=== PATIENT | female | born 1970 | race Caucasian/White ===

== ENCOUNTER 2019-10-16 11:50 | Outpatient (CLI) | payer BC ==
--- NOTE | 2019-10-16 12:21 | RAD ---
2 VIEW CHEST: Date: 10/16/2019 HISTORY: Cough. FINDINGS: Lung briggs appear clear. No infiltrate identified. Heart and mediastinum appear normal. Vascular mar kings normal. Osseous structures unremarkable. IMPRESSION: No acute findings. POS: [facility]
[2019-10-16 14:55] LABS: Free T4 (Free Thyroxine) 1.11 ng/dL (0.70-1.48); Thyroid Stimulating Hormone 2.1618 uIU/mL (0.35-4.94)
== END 2019-10-16 11:51 | disposition home or self-care (01) ==
LOC: SCSRAD 11:50
PROVIDERS: ATTEND Family Medicine
DX: R05 Cough (principal); E03.9 Hypothyroidism, unspecified
CPT/HCPCS: 36415; 71046; 84439; 84443; 84481

== ENCOUNTER 2021-10-20 17:00 | Outpatient (CLI) | payer BC | END 2021-10-20 17:01 | disposition home or self-care (01) | LOC: SLEEPLAB 17:00 | PROVIDERS: ATTEND Nurse Practitioner Family | DX: G47.9 Sleep disorder, unspecified (principal); R53.83 Other fatigue; R06.83 Snoring; G47.00 Insomnia, unspecified; I10 Essential (primary) hypertension | CPT/HCPCS: 95806 ==

== ENCOUNTER 2023-11-08 08:36 | Outpatient (CLI) | payer BC | END 2023-11-08 08:37 | disposition home or self-care (01) | LOC: SCSMRI 08:36 | PROVIDERS: ATTEND Family Medicine | DX: M47.22 Other spondylosis with radiculopathy, cervical region (principal); M47.813 Spondylosis without myelopathy or radiculopathy, cervicothoracic region; M48.02 Spinal stenosis, cervical region; M25.78 Osteophyte, vertebrae | CPT/HCPCS: 72141 ==

== ENCOUNTER 2024-02-27 10:10 | Outpatient (CLI) | payer BC | END 2024-02-27 10:11 | disposition home or self-care (01) | LOC: BICMAMMO 10:10 | PROVIDERS: ATTEND Obstetrics & Gynecology | DX: N64.4 Mastodynia (principal) | CPT/HCPCS: 77066; G0279 ==